=== PATIENT | female | born 1960 | race Caucasian/White ===

== ENCOUNTER 2020-03-24 21:54 | Emergency (ER) | payer BC ==
[~2020-03-24] VITALS: Ht 162.6 cm; Wt 88.5 kg
[~2020-03-24 21:54] MED LIST: ALLOPURINOL300 MG PO; ASPIRIN325 MG PO; HAIR, SKIN & N1 EACH PO; HYDROCODONE PO; PREVACID15 M1 PO; SYMBICORT PO; VENTOLIN HFA18 GM PO; VITAMIN E400 UNIT PO; [UNRECOGNIZED DRUG - OTHER] PO
--- NOTE | 2020-03-24 22:04 | Emergency Department Note ---
History of Present Illnes History of Present Illness History of Present Illness This is a 60 year old female with recent diagnosis of COVID-19 URI presents to the ED for neck stiffness of one day duration. patient had tested (+) for COVID-19 infection 03/07/2020. Arrived in EMS in no acute distress. Historian: Patient Arrival Mode: [facility] Onset (how long ago): day(s) Location: right paracervical Radiation: Reports neck Severity: moderate Onset quality: gradual Duration (how long): day(s) (1) Timing of current episode: constant Progression: worsening Chronicity: new Context: Reports recent illness Relieving factors: immobilization, rest Exacerbating factors: movement Associated symptoms: Denies denies other symptoms, Denies confusion, Denies chest pain, Denies cough, Denies diaphoresis, Denies fever/chills, Denies headaches, Denies loss of appetite, Denies malaise, Denies nausea/vomiting, Denies rash, Denies seizure, Denies shortness of breath, Denies syncope, Denies weakness, Denies other Treatments prior to arrival: none Past Medical/Family History Physician Review I have reviewed the patient's past medical and family history. Any updates have been documented here. Past Medical History Recent Fever: Yes Clinical Suspicion of Infectio: Yes New/Unexplained Change in Ment: No Social History Smoking Cessation: Never Smoker Alcohol Use: None Any Illegal Drug Use: No Review of Systems Review of Systems Constitutional: Reports fever, Reports weakness EENTM: Reports no symptoms Cardiovascular: Reports no symptoms Respiratory: Reports no symptoms Gastrointestinal: Reports no symptoms Genitourinary: Reports no symptoms Musculoskeletal: Reports muscle stiffness, Reports neck pain Integumentary: Reports no symptoms Neurological: Reports no symptoms Psychological: Reports no symptoms Endocrine: Reports no symptoms Hematological/Lymphatic: Reports no symptoms Physical Exam Related Data Allergies: Uncoded Allergies: SOME NUTS (Allergy, Severe, THROAT SWELLS, 02/28/09) Triage Vital Signs Vital Signs Date Time Temp Pulse Resp B/P (MAP) Pulse Ox O2 Delivery O2 Flow Rate FiO2 03/24/20 22:02 101.6 86 20 140/59 99 Room Air 03/24/20 23:53 2.0 Vital signs reviewed: Yes Physical Exam CONSTITUTIONAL Constitutional: Present obese, Present ill appearing HENT HENT: Present normocephalic, Present atraumatic, Present oropharynx clear/moist, Present nose normal HENT L/R: Present left ext ear normal, Present right ext ear normal EYES Eyes: Reports PERRL, Reports conjunctivae normal NECK Neck: Present other (hypertonicity paracervical region); Absent supple PULMONARY Pulmonary: Present effort normal, Present breath sounds normal CARDIOVASCULAR Cardiovascular: Present regular rhythm, Present heart sounds normal, Present capillary refill normal, Present normal rate GASTROINTESTINAL Abdominal: Present soft, Present nontender, Present bowel sounds normal GENITOURINARY Genitourinary: Present exam deferred SKIN Skin: Present warm, Present dry MUSCULOSKELETAL Musculoskeletal: Present ROM normal NEUROLOGICAL Neurological: Present alert, Present oriented x 3, Present no gross motor or sensory deficits PSYCHOLOGICAL Psychological: Present mood/affect normal, Present judgement normal Results Laboratory Lab results reviewed: Yes Imaging Imaging results reviewed: Yes Impressions [place] [id number] Patient Name: MARTIN CORONA MR #: [id number] : 1960 Age/Sex: 60/F Req #: [id number] Adm Physician: Ordered by: KEVON HALL DO Report #: [id number] Location: ER Room/Bed: Procedure: [id number] DX/CHEST SINGLE (PORTABLE) Exam Date: 03/24/20 Exam Time: 2300 REPORT STATUS: Signed EXAMINATION: CHEST SINGLE (PORTABLE) INDICATION: ^Y ^covid URI ^[id number] ^2300 COMPARISON: FINDINGS: Heart is nonenlarged. Prominent interstitial markings. Mild patchy right infrahilar opacity. No pleural effusion. No pneumothorax. Old left rib fractures. IMPRESSION: Mild patchy right infrahilar opacity could represent atelectasis or developing pneumonia. Signed by: Dionisio Davalos MD on 03/24/2020 11:47 PM Dictated By: DIONISIO DAVALOS MD 46 Transcribed By: LIMA on 03/24/202346 COPY TO: KEVON HALL DO~ [facility] [address] [place] [address] Patient Name: MARTIN CORONA MR #: [id number] : 1960 Age/Sex: 60/F Req #: [id number] Adm Physician: Ordered by: KEVNO HALL DO Report #: [id number] Location: ER Room/Bed: Procedure: [id number] CT/CT BRAIN WO Exam Date: 03/24/20 Exam Time: 2248 REPORT STATUS: Signed Exam: Head CT without contrast History: Pain, COVID + Comparison studies: None Technique: Axial images were obtained from the skull base to the vertex. Coronal and sagittal images reconstructed from the axial data. Dose modulation, iterative reconstruction, and/or weight based adjustment of the mA/kV was utilized to reduce the radiation dose to as low as reasonably achievable. Radiation dose: Total DLP: 832 mGy*cm. Estimated effective dose: DLP x 0.015 Intravenous contrast: None Findings: Scalp: No abnormalities. Bones: No fractures, blastic or lytic lesions. Brain sulci: Appropriate for age. Ventricles: Normal in size and configuration. No hydrocephalus. Extra-axial spaces: No masses, no fluid collection. Parenchyma: No abnormal densities. No masses, hemorrhage, acute or chronic vascular insults. Sellar/suprasellar region: No abnormalities. Craniocervical junction: Patent foramen magnum. No Chiari one malformation. Middle ear cavities and mastoids: Clear. Incidental findings: Atherosclerotic calcifications in the carotid siphons. Partially opacified right maxillary sinus with polypoid mucosal thickening.. IMPRESSION: No acute intracranial abnormality. Signed by: Dr. Addison Castellon M.D. on 03/24/2020 11:15 PM Dictated By: ADDISON CASTELLON MD 14 Transcribed By: LIMA on 03/24/202314 COPY TO: KEVON HALL DO~ Assessment & Plan Medical Decision Making MDM Diff Dx : COVID meningitis, meningitis, COVID-19 URI, respiratory failure Assessment & Plan Final Impression: (1) Upper respiratory tract infection due to COVID-19 virus (2) Hypoxia (3) Neck stiffness Depart Disposition: TRANS TO OTHER [facility] Home Meds Reported Medications Albuterol Sulfate (VENTOLIN HFA) 18 Gm Hfa.aer.ad, INH INH PRN 03/25/20 Olmesartan Medoxomil (BENICAR) 20 Mg Tablet, 20 MG PO DAILY, #30 TAB 03/25/20 Atorvastatin Calcium (ATORVASTATIN CALCIUM) 10 Mg Tablet, 10 MG PO 2100, #30 TAB 03/25/20 Fluticasone/Salmeterol (ADVAIR 100-50 DISKUS) 1 Each Disk.w.dev, 1 INH INH BID 03/25/20 Duloxetine Hcl (CYMBALTA) 20 Mg Capcr, 20 MG PO DAILY, #30 CAP 03/25/20 Pantoprazole Sodium* (PROTONIX) 40 Mg Tablet.dr, 40 MG PO DAILY, TAB 03/25/20 Vitamin E Acetate (VITAMIN E) 400 Unit Capsule, 400 UNITS PO DAILY, #30 CAP 01/09/14 Multivitamin With Minerals (HAIR, SKIN & NAILS) 1 Each Tablet, PO DAILY 10/31/13 Allopurinol (ALLOPURINOL) 300 Mg Tablet, 300 MG PO DAILY, #30 TAB 10/31/13 Discontinued Reported Medications Albuterol Sulfate (VENTOLIN HFA) 18 Gm Hfa.aer.ad, PO PRN 01/09/14 [Symbicort] No Conflict Check, 160 PO BID 01/09/14 [Hydrocodone] No Conflict Check, 7.5 MG PO HS 10/31/13 Aspirin (ASPIRIN) 325 Mg Tablet, 325 MG PO PRN, TAB 10/31/13 [Women's Ultra] No Conflict Check, PO DAILY 10/31/13 Lansoprazole (PREVACID) 15 Mg Tab.rap., 1-2 MG PO DAILY 10/31/13 KEVON HALL DO Mar 24, 2020 22:04
[2020-03-24] MEDS ORDERED: DEXAMETHASONE SOD PHOS 10 MG/1 ML VIAL IV STA (22:12)
[2020-03-24] MEDS ORDERED: AZITHROMYCIN 500MG/NS 250 ML 250 ML IV STA (22:12)
[2020-03-24] MEDS ORDERED: ACETAMINOPHEN 325 MG TAB PO STA (22:12)
[2020-03-24] MEDS ORDERED: MORPHINE SULFATE INJ 4 MG/ML INJ 1ML IV STA (22:15)
[2020-03-24] MEDS ORDERED: ONDANSETRON HCL INJ 2MG/ML 2ML 2 MG/ML VIAL IV STA (22:15)
[2020-03-24 23:07] LABS: BASOPHILS # (AUTO) 0.1 (0.0-0.1); BASOPHILS % 0.5 % (0.0-1.0); EOSINOPHILS # (AUTO) 0.1 (0.0-0.4); EOSINOPHILS % 1.1 % (0.0-6.0); HEMATOCRIT 35.1 % (34.2-44.1); HEMOGLOBIN 11.3 g/dL (12.0-16.0); LYMPHOCYTES % 21.6 % (18.0-39.1); MEAN CORPUSCULAR HEMOGLOBIN 29.1 pg (28-32); MEAN CORPUSCULAR HGB CONC 32.2 g/dL (31-35); MEAN CORPUSCULAR VOLUME 90.5 fL (81-99); MONOCYTES # (AUTO) 0.8 (0.2-0.8); MONOCYTES % 8.5 % (4.4-11.3); NEUTROPHILS # (AUTO) 6.3 (2.1-6.9); NEUTROPHILS % 67.9 % (38.7-80.0); PLATELET COUNT 395 x10e3/uL (140-360); RED BLOOD COUNT 3.88 x10e6/uL (3.6-5.1); RED CELL DISTRIBUTION WIDTH 13.1 % (11.7-14.4)
--- NOTE | 2020-03-24 23:19 | Diagnostic Imaging Report ---
Exam: Head CT without contrast History: Pain, COVID + Comparison studies: None Technique: Axial images were obtained from the skull base to the vertex. Coronal and sagittal images reconstructed from the axial data. Dose modulation, iterative reconstruction, and/or weight based adjustment of the mA/kV was utilized to reduce the radiation dose to as low as reasonably achievable. Radiation dose: Total DLP: 832 mGy*cm. Estimated effective dose: DLP x 0.015 Intravenous contrast: None Findings: Scalp: No abnormalities. Bones: No fractures, blastic or lytic lesions. Brain sulci: Appropriate for age. Ventricles: Normal in size and configuration. No hydrocephalus. Extra-axial spaces: No masses, no fluid collection. Parenchyma: No abnormal densities. No masses, hemorrhage, acute or chronic vascular insults. Sellar/suprasellar region: No abnormalities. Craniocervical junction: Patent foramen magnum. No Chiari one malformation. Middle ear cavities and mastoids: Clear. Incidental findings: Atherosclerotic calcifications in the carotid siphons. Partially opacified right maxillary sinus with polypoid mucosal thickening.. IMPRESSION: No acute intracranial abnormality. Signed by: Dr. Ralph Castellon M.D. on 03/24/2020 11:15 PM
[2020-03-24 23:21] LABS: ALANINE AMINOTRANSFERASE 122 IU/L (0-55); ALBUMIN 3.5 g/dL (3.5-5.0); ALBUMIN/GLOBULIN RATIO 0.9 (0.8-2.0); ALKALINE PHOSPHATASE 207 IU/L (40-150); ANION GAP 15.9 mmol/L (8-16); BLOOD UREA NITROGEN 8 mg/dL (7-26); BUN/CREATININE RATIO 11 (6-25); CARBON DIOXIDE 26 mmol/L (22-29); CHLORIDE 101 mmol/L (98-107); CREATININE, SERUM 0.76 mg/dL (0.57-1.11); EST GLOMERULAR FILTRATION RATE > 60 ML/MIN (60-); GLUCOSE 104 mg/dL (74-118); POTASSIUM 3.9 mmol/L (3.5-5.1); SODIUM 139 mmol/L (136-145)
--- NOTE | 2020-03-24 23:51 | Diagnostic Imaging Report ---
EXAMINATION: CHEST SINGLE (PORTABLE) INDICATION: ^Y ^covid URI ^[id number] ^2305 COMPARISON: FINDINGS: Heart is nonenlarged. Prominent interstitial markings. Mild patchy right infrahilar opacity. No pleural effusion. No pneumothorax. Old left rib fractures. IMPRESSION: Mild patchy right infrahilar opacity could represent atelectasis or developing pneumonia. Signed by: Stuart Fowler MD on 03/24/2020 11:47 PM
--- NOTE | 2020-03-24 23:59 | NUR ---
Patient O2 saturation dropping to 91% on room air. ER MD notified.
--- OUTSIDE RECORDS SUMMARY | 2020-03-25 00:05 | XMS REPORT | Continuity of Care Document ---
Author Author [facility] t Organization [facility] Address [address] [place] [address] Phone Unavailable Care Team Providers Care Shoe Stamper Name Role Phone Steff YOUNG, Marisol Duarte PCP KEVON HALL Attphys Unavailable Benjamin Artis Attphys Problems Condition Name Condition Details Condition Category Status Onset Date Resolution Date Last Treatment Date Treating Clinician Comments Source M75.22 - BICIPITAL TENDINITIS, LEFT MATTHIAS M75.22 - BICIPITAL TENDINITIS, LEFT MATTHIAS Active 09/18/2017 Abida Chavez Diagnosis Active 2017-09-18 00:01:00 2017-09-18 12:49:00 Abida Chavez ABDOMINAL PAIN GENERALIZED ABD OMINAL PAIN GENERALIZED Active 07/27/2014 Condition 07/27/2014 Medical Group Condition Active 2014-07-27 00:00:00 2014-07-27 09:56:04 Abida Chavez RLQ PAIN / RUQ PAIN RLQ PAIN / RUQ PAIN Active 07/27/2014 [facility] Active 2014-07-27 00:00:00 2014-08-27 15:29:00 Abida Chavez 592.0 - CALCULUS OF KID 592. 0 - CALCULUS OF KID Active 04/06/2013 [facility] Diagnosis Active 2013-04-06 00:01:00 2013-12-24 20:29:00 Abida Chavez Onychomycosis Onyc homycosis Active Problem 07/13/2015 [facility] Problem Active 2015-07-13 03:47:56 Abida Chavez Precordial pain Prec ordial pain Active Diagnosis 06/07/2016 Richard Ramos Diagnosis Active 2016-06-07 04:28:07 Abida Chavez Abnormal EKG Abno rmal EKG Active Diagnosis 06/07/2016 Richard Ramos Diagnosis Active 2016-06-07 04:28:07 [facility] [place] Pure hypercholesterolemia Pure hypercholesterolemia Active Problem 06/07/2016 Richard Ramos Problem Active 2016-06-07 04:28 :07 [facility] Reflux esophagitis Refl ux esophagitis Active Diagnosis 06/07/2016 Richard Ramos Diagnosis Active 2016-06-07 04:28:07 [facility] Abn. Cardio Study Abn. Cardio Study Active Diagnosis 06/07/2016 Richard Ramos Diagnosis Active 2016-06-07 04:28:07 [facility] Chronic airway obstruction, not elsewhere classified Chronic airway obstruction, not elsewhere classified Active Diagnosis 06/07/2016 Richard Ramos Diagnosis Active 2016-06-07 04:28:07 [facility] Feelings Of Urinary Urgency Fe elings Of Urinary Urgency Active 09/02/2013 [facility] Problem Active 2013-09-02 14:32: 54 [facility] Calculus Of Kidney And Ureter Calculus Of Kidney And Ureter Active 09/02/2013 [facility] Problem Active 20 14-09-01 14:32:54 [facility] Nephrolithiasis Neph rolithiasis Active 09/02/2013 [facility] Problem Active 2013-09-02 14:32:54 [facility] Urinary Tract Infection Urin brad Tract Infection Active 09/02/2013 [facility] Problem Active 2013-09-02 14:32: 54 [facility] Acute Bronchitis Acut e Bronchitis Active 09/02/2013 [facility] Problem Active 2013-09-02 14:32:54 [facility] Headache Clus ter Headache Active 09/02/2013 [facility] Problem Active 2013-09-02 14:32:54 [facility] Acute Frontal Sinusitis Acut e Frontal Sinusitis Active 09/02/2013 [facility] Problem Active 2013-09-02 14:32: 54 [facility] Allergies, Adverse Reactions, Alerts Allergy Name Allergy Type Status Severity Reaction(s) Onset Date Inacti ve Date Treating Clinician Comments Source iodine<sup>1</sup> iodine<sup>1</sup> Active 2014-07-27 05: 00:00 [facility] IODINE IODINE Active 2014-07-27 00:00:00 [facility] Cashews Cashews Active Info Not Available 2013-12-29 00:00:00 [facility] Peanuts Peanuts Active Info Not Available 2013-12-29 00:00:00 [facility] Walnuts Walnuts Active Info Not Available 2013-12-29 00:00:00 [facility] Iodinated Contrast Media Propensity to adverse reactions to drug Acti ve 1998-05-04 00:00:00 Lobito Mendez odist No Known Drug Allergies No Known Drug Allergies Active [facility] Family History Family Member Diagnosis Comments Start Date Stop Date Source Unknown Family Member Family History 2013-03-17 22:47:33 2 22:47:33 [facility] Social History Social Habit Start Date Stop Date Quantity Comments Source Sex Assigned At [place] umana Yazidism Tobacco use and exposure 2018-08-30 00:00:00 2018-08-30 00:00:00 Belénnoman jo-ann used Lobito Vega Smokin2013-12-29 00:00:00 2013-12-29 00:00:00 [facility] Social History 2013-09-02 14:32:54 2013-09-02 14:32:54 [facility] Smoking Status Start Date Stop Date Source Never smoker Lobito deluna Medications Ordered Medication Name Filled Medication Name Start Date Stop Da te Current Medication? Ordering Clinician Indication Dosage Frequency Signature (SIG) Comments Components Source Ventolin HFA 2016-06-07 04:28:07 Yes Ahmed Ahmed 2 puffs as needed [facility] Symbicort 2016-06-07 04:28:07 Yes Ahmed Ahmed 2 p uffs [facility] Aspirin 2016-06-07 04:28:07 Yes Ahmed Ahmed 1 tab let [facility] Benadryl 2016-06-07 04:28:07 Yes Ahmed Ahmed 1 ca psule as needed [facility] Allopurinol 2016-06-07 04:28:07 Yes Ahmed Ahmed 1 tablet [facility] Prevacid 2016-06-07 04:28:07 Yes Ahmed Ahmed 1 capsule before a meal [facility] PANTOPRAZOLE SODIUM 40 MG TBEC 2014-07-27 00:00:00 Yes [facility] ALLOPURINOL 300 MG TABS 2014-07-27 00:00:00 Yes [facility] SYMBICORT AERO 2014-07-27 00:00:00 Yes [facility] ASPIRIN 325 MG TABS 2014-07-27 00:00:00 Yes [facility] CIPRO TABS 2014-07-27 00:00:00 Yes Abida Scott VITAMIN E 1000 UNIT CAPS 2014-07-27 00:00:00 Yes [facility] [place] MULTI-VITAMIN TABS 2014-07-27 00:00:00 Yes Abida Scott HAIR/SKIN/NAILS TABS 2014-07-27 00:00:00 Yes [facility]ida [place] Prevacid 30 MG Oral Capsule Delayed Release 2013-09-02 14:32:54 Yes (Active) Abida [place] Allopurinol 300 MG Oral Tablet 2013-09-02 14:32:54 Yes (Active) [facility] [place] Multi Vitamin/Minerals TABS 2013-09-02 14:32:54 Yes (Active) Abida [facility] Hair/Skin/Nails/Biotin TABS 2013-09-02 14:32:54 Yes (Active) Abida Chavez Aspirin 325 MG Oral Tablet 2013-09-02 14:32:54 Yes (Active) Abida Chavez MethylPREDNISolone (Reuben) 4 MG Oral Tablet 2013-06-16 06:00:00 Yes ; Start Date: 06/16/2013; End Date: (Active) Abida [place] Lortab 7.5-500 MG Oral Tablet 2013-03-17 22:47:33 Yes (Active) Abida [place] Promethazine HCl TABS 2013-03-17 22:47:33 Yes (Active) Abida Chavez Cefdinir 300 MG Oral Capsule 2013-03-17 06:00:00 Yes ; Start Date: 03/17/2013; End Date: (Active) Abida Chavez Tamsulosin HCl 0.4 MG Oral Capsule 2013-01-12 05:00:00 Yes ; Start Date: 01/12/2013; End Date: (Active) [facility] Vital Signs Vital Name Observation Time Observation Value Comments Source Height 2014-07-27 14:56:04 [facility] Weight 2014-07-27 14:56:04 Abida Chavez Temperature Oral (F) 2014-07-27 14:56:04 98.4 F [facility] Heart Rate 2014-07-27 14:56:04 Abida Chavez Systolic (mm Hg) 2014-07-27 14:56:04 Jeff rial [facility] Diastolic (mm Hg) 2014-07-27 14:56:04 Mem orial [facility] Weight 2013-12-29 20:45:00 [facility] [place] Heart Rate 2013-12-29 20:45:00 [facility] Diastolic (mm Hg) 2013-12-29 20:45:00 Mem orial [facility] Systolic (mm Hg) 2013-12-29 20:45:00 Jeff rial [place] Weight 2013-12-15 19:45:00 [facility] [place] Heart Rate 2013-12-15 19:45:00 [facility] [place] Diastolic (mm Hg) 2013-12-15 19:45:00 Mem orial [place] Systolic (mm Hg) 2013-12-15 19:45:00 Jeff rial [place] Procedures This patient has no known procedures. Plan of Care Planned Activity Planned Date Details Comments Source Future Scheduled Test 2019-12-03 00:00:00 INFLUENZA VACCINE [code = INFLUENZA VACCINE] [facility] Scheduled Test 2017-11-29 00:00:00 BREAST CANCER SCRE ENING [code = BREAST CANCER SCREENING] [facility] Scheduled Test 2013-09-02 14:32:54 Plan of Care [code = 1877 6-5] [facility] Scheduled Test 2013-06-17 14:16:50 Plan of Care [code = 1877 6-5] [facility] Scheduled Test 2010 00:00:00 COLONOSCOPY SCREEN ING [code = COLONOSCOPY SCREENING] [facility] Scheduled Test 2010 00:00:00 SHINGLES VACCINES (#1) [code = SHINGLES VACCINES (#1)] [facility] Scheduled Test 1981 00:00:00 Screening for polo gnant neoplasm of cervix (procedure) [code = 017572849] [facility] Encounters Start Date/Time End Date/Time Encounter Type Admission Type Att[facility] Care Department Encounter ID Source 2017-09-18 12:10:00 2017-09-18 23:59:00 Outpatient Felicia Artis MHOIB MHOIB [id number] 2015-07-12 15:28:00 2015-07-12 15:28:00 Outpatient [facility] [id number] eClinicalWo rks 2013-12-29 14:45:00 2013-12-29 14:45:00 Outpatient Richard Ramos MD, [place], [place] [id number] eClinicalBalakam 2013-12-15 13:45:00 2013-12-15 13:45:00 Outpatient Richard Ramos MD, PHILIP Ramos MD, [place] [id number] eClinicalWorks 2013-09-02 09:32:55 2013-09-02 09:32:54 Outpatient ALLY CANALES [id number] 2013-06-17 08:16:51 2013-06-17 08:16:50 Outpatient ALLY CANALES [id number] 2013-03-17 16:47:33 2013-03-17 16:47:33 Outpatient ALLY CANALES [id number] Results Test Description Test Time Test Comments Results Result Comments Source CHEST SINGLE (PORTABLE) 2020-03-24 23:45:00 [facility] 1960 Sex: F [place] [address] Patient Name: ADRIANA CORONA MR #: [id number] : 1960 Age/Sex: 60/F Req #: [id number] [facility] Physician: Ordered by: KEVON HALL DO Report #: [id number] Location: ER Room/Bed: Procedure: [id number] DX/CHEST SINGLE (PORTABLE) Exam Date: 03/24/20 Exam Time: 2300 REPORT STATUS: Signed EXAMINATION: CHEST SINGLE (PORTABLE) INDICATION: Y covid URI [id number] COMPARISON: FINDINGS: Heart is nonenlarged. Prominent interstitial markings. Mild patchy right infrahilar opacity. No pleural effusion. No pneumothorax. Old left rib fractures. IMPRESSION: Mild patchy right infrahilar opacity could represent atelectasis or developing pneumonia. Signed by: Dionisio Fowler MD on 03/24/2020 11:47 PM Dictated By: DIONISIO FOWLER MD 46 Transcribed By: LIMA on 03/24/202346 COPY TO: KEVON HALL DO CT BRAIN WO 2020-03-24 23:12:[address] [facility] 1960 Sex: F [place] [address] Patient Name: ADRIANA CORONA MR #: [id number] : 1960 Age/Sex: 60/F Req #: [id number] Adm Physician: Ordered by: KEVON HALL DO Report #: [id number] Location: ER Room/Bed: Procedure: [id number] CT/CT BRAIN WO Exam Date: 03/24/20 Exam Time: 2248 REPORT STATUS: Signed Exam: Head CT without contrast History: Pain, COVID + Comparison studies: None Technique: Axial images were obtained from the skull base to the vertex. Coronal and sagittal images reconstructed from the axial data. Dose modulation, iterative reconstruction, and/or weight based adjustment of the mA/kV was utilized to reduce the radiation dose to as low as reasonably achievable. Radiation dose: Total DLP: 832 mGy*cm. Estimated effective dose: DLP x 0.015 Intravenous contrast: None Findings: Scalp: No abnormalities. Bones: No fractures, blastic or lytic lesions. Brain sulci: Appropriate for age. Ventricles: Normal in size and configuration. No hydrocephalus. Extra-axial spaces: No masses, no fluid collection. Parenchyma: No abnormal densities. No masses, hemorrhage, acute or chronic vascular insults. Sellar/suprasellar region: No abnormalities. Craniocervical junction: Patent foramen magnum. No Chiari one malformation. Middle ear cavities and mastoids: Clear. Incidental fin dings: Atherosclerotic calcifications in the carotid siphons. Partially opacified right maxillary sinus with polypoid mucosal thickening.. IMPRESSION: No acute intracranial abnormality. Signed by: Dr. Addison Madden M.D. on 03/24/2020 11:15 PM Dictated By: ADDISON MADDEN MD 14 Transcribed By: LIMA on 03/24/202314 COPY TO: KEVON HALL DO DIAG MAMM BILATERAL IRENE CAD DIGITAL 2020-02-24 09:51:40 Name: Adriana : 1960 Sex: F - DIAG MAMM BILATERAL IRENE CAD DIGITALBILATERAL DIGITAL DIAGNOSTIC MAMMOGRAM 3D/2D WITH CAD: 02/24/2020CLINICAL: Follow up to previous exam. Digital breast tomosynthesis was performed in addition to routine CC and MLO views. Current mammographic images were evaluated by either a [employer] M-Vu or a [employer] Image[employer] CAD (computer aided detection system). Comparison is made to exams dated 01/14/2019 mammogram, 12/18/2017 mammogram, and 11/21/2016 mammogram - [facility] There are scattered fibroglandular tissues in both breasts. No suspicious mass, architectural distortion, malignant type calcification, or lymph node abnormality detected. INCOMPLETE: ADDITIONAL IMAGING EVALUATION NEEDEDBilateral ultrasound pending for additional evaluation. - BREAST ULTRASOUND BILATERALULTRASOUND OF BOTH BREASTS AND BOTH AXILLA: 02/24/2020Comparison is made to exams dated 01/14/2019 mammogram, 12/18/2017 mammogram, and 11/21/2016 mammogram - [facility] Real-time ultrasound of both breasts and both axilla and clinical breast exam were performed. There is a stable benign cyst in the right breast at 10 o'clock, 5 cm from the nipple. No abnormalities were seen sonographically in the left breast or either axilla. IMPRESSION: BENIGN There is no sonographic evidence of malignancy. The stable cyst in the right breast is benign. Resume annual screening mammography in one year. Sumi Guidry M.D. dm/:02/24/2020 09:51:40 Entry: - 02/24/2020 14:20:30Imaging Technologist: Chastity NOE, [facility]FWletter sent: BIRADS 1-2 Combo FU Letter Mammogram BI-RADS: 0 Incomplete: Additional Imaging Evaluation Needed Ultrasound BI-RADS: 2 Benign BREAST ULTRASOUND BILATERAL 2020-02-24 09:51:40 Name: Adriana : 1960 Sex: F - DIAG MAMM BILATERAL IRENE CAD DIGITALBILATERAL DIGITAL DIAGNOSTIC MAMMOGRAM 3D/2D WITH CAD: 02/24/2020CLINICAL: Follow up to previous exam. Digital breast tomosynthesis was performed in addition to routine CC and MLO views. Current mammographic images were evaluated by either a [employer] M-Vu or a [employer] ImageCheLa Guía [employer] D[employer]er CAD (computer aided detection system). Comparison is made to exams dated 01/14/2019 mammogram, 12/18/2017 mammogram, and 11/21/2016 mammogram - [facility] There are scattered fibroglandular tissues in both breasts. No suspicious mass, architectural distortion, malignant type calcification, or lymph node abnormality detected. INCOMPLETE: ADDITIONAL IMAGING EVALUATION NEEDEDBilateral ultrasound pending for additional evaluation. - BREAST ULTRASOUND BILATERALULTRASOUND OF BOTH BREASTS AND BOTH AXILLA: 02/24/2020Comparison is made to exams dated 01/14/2019 mammogram, 12/18/2017 mammogram, and 11/21/2016 mammogram - [facility] Real-time ultrasound of both breasts and both axilla and clinical breast exam were performed. There is a stable benign cyst in the right breast at 10 o'clock, 5 cm from the nipple. No abnormalities were seen sonographically in the left breast or either axilla. IMPRESSION: BENIGN There is no sonographic evidence of malignancy. The stable cyst in the right breast is benign. Resume annual screening mammography in one year. Sumi Guidry M.D. dm/:02/24/2020 09:51:40 Entry: - 02/24/2020 14:20:30Imaging Technologist: Chastity NOE, [facility]-FWletter sent: BIRADS 1-2 Combo FU Letter Mammogram BI-RADS: 0 Incomplete: Additional Imaging Evaluation Needed Ultrasound BI-RADS: 2 Benign DIAG MAMM RIGHT IRENE CAD DIGITAL 2019-02-18 10:37:51 - DIAG MAMM RIGHT IRENE CAD DIGITALUNILATERAL RIGHT DIGITAL DIAGNOSTIC MAMMOGRAM 3D/2D WITH CAD: 02/18/2019CLINICAL: Recall from screening: Asymmetry right breast. Digital breast tomosynthesis was performed in addition to routine CC and MLO views. Current mammographic images were evaluated by either a [employer] M-Vu or a [employer] ImageConterra Broadband Servicescker CAD (computer aided detection system). Comparison is made to exams dated 12/18/2017 mammogram, 11/21/2016 mammogram - [facility]-, and 11/30/2015 mammogram - [facility] [place]. There are scattered fibroglandular tissues in the right breast. Previously described 6 mm asymmetry in the right breast craniocaudal view laterally, posterior depth, is much less conspicuous on spot compression tomosynthesis views most likely superimposition of breast tissue. An adjacent oval circumscribed low-density benign-appearing mass is also noted.No suspicious mass, architectural distortion, malignant type calcification, or lymph node abnormality detected. INCOMPLETE ASSESSMENT: ADDITIONAL IMAGING EVALUATION RECOMMENDEDMuch less conspicuous asymmetry in the right breast. Survey right breast ultrasound to follow.- BREAST ULTRASOUND RIGHTULTRASOUND OF RIGHT BREAST: 02/18/2019Comparison is made to exams dated 12/18/2017 mammogram, 11/21/2016 mammogram - [facility], and 11/30/2015 mammogram - [facility]. Color flow and real-time ultrasound of the right breast were performed. Jeffery scale images of the real- time examination were reviewed. The breast tissue has scattered fibroglandular background echotexture. Targeted right upper outer quadrant ultrasound demonstrates a 5 mm simple cyst which correlates with an oval circumscribed low- density mass in the right breast, benign. The rest of the right breast survey ultrasound is negative. No axillary lymphadenopathy was faxed.IMPRESSION: PROBABLY BENIGN - FOLLOW-UP RECOMMENDEDThere is no sonographic evidence of malignancy. Much less conspicuous asymmetry in the right breast laterally, posterior depth. This is most likely superimposition of breast tissue. Findings are probably benign, BI-RADS 3. A six-month follow-up spot compression tomosynthesis craniocaudal view is recommended to assess stability.Jt Clemente M.D. ss/:02/18/2019 10:37:51 Teletypewriter Installer: Rashmi NOE, [facility]-letter sent: Short Term Follow Up Ma mmogram BI-RADS: 0 Indeterminate Ultrasound BI-RADS: 3 Probably benign BREAST ULTRASOUND RIGHT 2019-02-18 10:37:51 - D IAG MAMM RIGHT IRENE CAD DIGITALUNILATERAL RIGHT DIGITAL DIAGNOSTIC MAMMOGRAM 3D/2D WITH CAD: 02/18/2019CLINICAL: Recall from screening: Asymmetry right breast. Digital breast tomosynthesis was performed in addition to routine CC and MLO views. Current mammographic images were evaluated by either a [employer] M-Vu or a [employer] ImageConterra Broadband Servicescker CAD (computer aided detection system). Comparison is made to exams dated 12/18/2017 mammogram, 11/21/2016 mammogram - [facility]-, and 11/30/2015 mammogram - [place]. There are scattered fibroglandular tissues in the right breast. Previously described 6 mm asymmetry in the right breast craniocaudal view laterally, posterior depth, is much less conspicuous on spot compression tomosynthesis views most likely superimposition of breast tissue. An adjacent oval circumscribed low-density benign-appearing mass is also noted.No suspicious mass, architectural distortion, malignant type calcification, or lymph node abnormality detected. INCOMPLETE ASSESSMENT: ADDITIONAL IMAGING EVALUATION RECOMMENDEDMuch less conspicuous asymmetry in the right breast. Survey right breast ultrasound to follow.- BREAST ULTRASOUND RIGHTULTRASOUND OF RIGHT BREAST: 02/18/2019Comparison is made to exams dated 12/18/2017 mammogram, 11/21/2016 mammogram - [facility]-, and [facility] [place]. Color flow and real-time ultrasound of the right breast were performed. Jeffery scale images of the real- time examination were reviewed. The breast tissue has scattered fibroglandular background echotexture. Targeted right upper outer quadrant ultrasound demonstrates a 5 mm simple cyst which correlates with an oval circumscribed low- density mass in the right breast, benign. The rest of the right breast survey ultrasound is negative. No axillary lymphadenopathy was faxed.IMPRESSION: PROBABLY BENIGN - FOLLOW-UP RECOMMENDEDThere is no sonographic evidence of malignancy. Much less conspicuous asymmetry in the right breast laterally, posterior depth. This is most likely superimposition of breast tissue. Findings are probably benign, BI-RADS 3. A six-month follow-up spot compression tomosynthesis craniocaudal view is recommended to assess stability.Jt Clemente M.D. ss/:02/18/2019 10:37:51 Teletypewriter Installer: Rashmi NOE, [facility] sent: Short Term Follow Up Ma mmogram BI-RADS: 0 Indeterminate Ultrasound BI-RADS: 3 Probably benign SCR MAMM BILATERAL IRENE CAD DIGITAL 2019-01-15 12:37:40 - SCR MAMM BILATERAL IRENE CAD DIGITALBILATERAL DIGITAL SCREENING MAMMOGRAM 3D/2D WITH CAD: 01/14/2019CLINICAL: Asymptomatic. Digital breast tomosynthesis was performed in addition to routine CC and MLO views. Current mammographic images were evaluated by either a [employer] M-Vu or a [employer] ImageBeijing [employer] CAD (computer aided detection system). Comparison is made to exams dated 12/18/2017 mammogram, 11/21 mammogram - [facility], and 11/30/2015 mammogram - [facility]. There are scattered fibroglandular tissues in both breasts. There is a 6 mm asymmetry in the right breast, middle depth, lateral region seen on the craniocaudal view only, 7 cm from the nipple. No other significant masses, calcifications, or other findings are seen in either breast. IMPRESSION: INCOMPLETE ASSESSMENT: ADDITIONAL IMAGING EVALUATION RECOMMENDEDThe 6 mm asymmetry in the right breast is indeterminate; may represent superimposition of tissue. Additional views with possible ultrasound are recommended. Xin Lagunas D.O. al/:01/15/2019 12:37:40 Teletypewriter Installer: Chastity NOE, [facility]-FWletter sent: Additional Imaging Mammogram BI-RADS: 0 Indeterminate
--- OUTSIDE RECORDS SUMMARY | 2020-03-25 00:05 | XMS REPORT | Clinical Summary ---
Author Author [facility] Organization [facility] Address Unknown Phone Unavailable Care Team Providers Care Tire Servicer Name Role Phone Felicia Artis MD PCP Allergies Comments Active Allergy Reactions Severity Noted Date Iodinated Contrast Media 05/04/1998 Medications Not on file Active Problems Not on file Medical History Medical History Date Comments Hypertension Hyperlipidemia Peptic ulceration COPD (chronic obstructive pulmonary disease) (HCC) Kidney stones Social History Date Tobacco Use Types Packs/Day Years Used Never Smoker Smokeless Tobacco: Never Used Sex Assigned at Date Recorded Not on file Last Filed Vital Signs Not on file Plan of Treatment Health Maintenance Due Date Last Done Comments CERVICAL CANCER SCREENING 1981 COLONOSCOPY SCREENING 2010 SHINGLES VACCINES (#1) 2010 BREAST CANCER SCREENING 11/29/2017 11/30/2015, 10/12/2014, 10/12/2013, Additional history exists INFLUENZA VACCINE 12/03/2019 Results Not on fileafter 03/25/2019 Insurance Type Payer Benefit Subscriber ID Effective Phone Address Plan / Dates Group HMO/PPO [facility] [id number] 2018-P THCARE resent CHOICE/CHO ICE + KATE daniel (Home) [place] [address] Advance Directives For more information, please contact: [phone] Patient X Ray Control Equipment Repairer Explanation Type Date Recorded Advance Directives, Living Will and Medical Power of Trade Show Coordinator
--- OUTSIDE RECORDS SUMMARY | 2020-03-25 00:05 | XMS REPORT | Continuity of Care Document ---
Author Author [employer] Organization [facility] [employer] Address Unknown Phone Unavailable Care Team Providers Care Kiln Stoker Name Role Phone [facility] Unavailable Un available Problems Problem Status Onset Date Classification Date Reported Comments Source M75.22 - BICIPITAL TENDINITIS, LEFT MATHTIAS Active 09/18/2017 [place] ABDOMINAL PAIN GENERALIZED Act davey 07/27/2014 Condition 07/27/2014 [facility] RLQ PAIN / RUQ PAIN Active 07/27/2014 [place] 592.0 - CALCULUS OF KID Active 04/06/2013 [facility] [place] Onychomycosis Active Problem 07/13/2015 [facility] Precordial pain Active Diagnosis 06/07/2016 Richard Ramos Abnormal EKG Active Diagnosis 06/07/2016 Richard Ramos Pure hypercholesterolemia Acti ve Problem 08/2016 [facility] Richard Reflux esophagitis Active Diagnosis 06/07/2016 Richard Ramos Abn. Cardio Study Active Diagnosis 06/07/2016 Richard Ramos Chronic airway obstruction, not elsewhere classified Active Diagnosis 06/07/2016 Richard Ramos Feelings Of Urinary Urgency Ac tive 09/02/2013 [facility] Calculus Of Kidney And Ureter Active 09/02/2013 [facility] Nephrolithiasis Active 09/02/2013 [facility] Urinary Tract Infection Active 09/02/2013 [facility] Acute Bronchitis Active 09/02/2013 [facility] Cluster Headache Active 09/02/2013 [facility] Acute Frontal Sinusitis Active 09/02/2013 [facility] Medications Medication Details Route Status Patient Instructions Ordering Provider Order Date Source PANTOPRAZOLE SODIUM 40 MG TBEC Active 07/27/2014 [facility] ALLOPURINOL 300 MG TABS Active 07/27/2014 [facility] SYMBICORT AERO Active 07/27/2014 [facility] ASPIRIN 325 MG TABS Active 07/27/2014 [facility] CIPRO TABS Active 07/27/2014 [facility] VITAMIN E 1000 UNIT CAPS Active 07/27/2014 [facility] MULTI-VITAMIN TABS Active 07/27/2014 [facility] HAIR/SKIN/NAILS TABS Active 07/27/2014 [facility] MethylPREDNISolone ([place]) 4 MG Oral Tablet ; Start Date: 06/16/2013; End Date: (Active) Active 06/16/2013 [facility] Cefdinir 300 MG Oral Capsule ; Start Date: 03/17/2013; End Date: (Active) Active 03/17/2013 [facility] Tamsulosin HCl 0.4 MG Oral Capsule ; Start Date: 01/12/2013; End Date: (Active) Active 01/12/2013 [facility] Ventolin HFA 2 puffs as needed Inhalation Active 108 (90 Base) MCG/ACT Inhalation every 4 hrs [facility] Richard Ramos Symbicort 2 puffs Inhalation Active 80-4.5 MCG/ACT Inhalati [facility] Aspirin 1 tablet Orally Active 325 MG Orally [facility] a da [facility] Benadryl 1 capsule as needed Orally Active 25 MG Orally every 6 hrs [facility] Allopurinol 1 tablet Orally Active [facility] Pre[facility]id 1 capsule before a me al Orally Active 15 MG Orally [facility] Prevacid 30 MG Oral Capsule Delayed Release (Active) Active [facility] Lortab 7.5-500 MG Oral Tablet (Active) [facility] Promethazine HCl TABS (Active) Active [facility] Allopurinol 300 MG Oral Tablet (Active) Active [facility] Multi Vitamin/Minerals TABS ( Active) Active [facility] Hair/Skin/Nails/Biotin TABS ( Active) Active [facility] Aspirin 325 MG Oral Tablet (A ctive) Active [facility] Allergies, Adverse Reactions, Alerts Substance Category Reaction Severity Reaction type Status Date Reported Comments Source [place] Adverse Reaction Info Not Available Adverse Reaction Active 12/29/2013 Richard Ramos Peanuts Adverse Reaction Info Not Available Adverse Reaction Active 12/29/2013 Richard Ramos Walnuts Adverse Reaction Info Not Available Adverse Reaction Active 12/29/2013 Richard Ramos IODINE Drug allergy IODINE 07/27/2014 [facility] iodine<sup>1</sup> Assertion Drug allergy Active 07/27/2014 Data migrated from [facility] on 12/08/14. Originally documented as iodine. [facility] [place] No Known Drug Allergies drug a llergy drug aller gy Active [facility] Immunizations Immunization Date Given Site Status Last Updated Comments Source Tdap completed [facility] Results No Data Provided for This Section Pathology Reports No Data Provided for This Section Diagnostic Reports Report Value Date Source Shoulder series DX EXAM: XR LE FT SHOULDER 3 VIEWS DATE: 09/18/2017 12:13 PM CDT INDICATION: M75.22 Bicipital tendinitis, left shoulder COMPARISON: None. TECHNIQUE: AP views in internal and external rotation, and an axillary view of the shoulder FINDINGS: No acute fracture or malalignment is identified. Mild osteophyte formation is noted the left AC joint. The left glenohumeral joint joint is maintained. No appreciable soft tissue calcification is noted in the left shoulder. IMPRESSION: 1. No acute fracture or malalignment. 2. 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 09/18/2017 [facility] Consultation Notes No Data Provided for This Section Discharge Summaries No Data Provided for This Section History and Physicals No Data Provided for This Section Vital Signs Vital Sign Value Date Comments Source Height 64 0 07/27/2014 [facility] Weight 179 07/27/2014 [facility] Temperature Oral (F) 98.4 F 07/27/2014 [facility] Heart Rate 66 07/27/2014 [facility] Systolic (mm Hg) 133 07/27/2014 [facility] Diastolic (mm Hg) 82 07/27/2014 [facility] Weight 185 12/29/2013 [facility] Heart Rate 68 12/29/2013 Ahmed [facility] Diastolic (mm Hg) 64 12/29/2013 Ahmed [facility] Systolic (mm Hg) 108 12/29/2013 Ahmed [facility] Weight 185 12/15/2013 Ahmed Ahmed Heart Rate 64 12/15/2013 Ahmed Ahmed Diastolic (mm Hg) 64 12/15/2013 Ahmed Ahmed Systolic (mm Hg) 102 12/15/2013 Ahmed Ahmed Encounters Location Location Details Encounter Type Encounter Number Reason For Visit Attending Provider ADM Date DC Date Status Source AUDIT [id number] 03/17/2013 03/17/2013 [facility] AUDIT [id number] 06/17/2013 06/17/2013 [facility] AUDIT [id number] 09/02/2013 09/02/2013 [facility] Richard Ramos MD, PA pt having some SOB, fatigue dr barry suggested she see syrup maker cook [id number] 12/15/2013 12/15/2013 Richard Ramos MD, PA pt having some SOB, fatigue dr barry suggested she see syrup maker cook [id number] 12/15/2013 12/15/2013 Richard Ramos MD, PA f/u [id number] 12/29/2013 12/29/2013 Richard Ramos [facility] 350 Office Visit [id number] Brendon Santos MD 07/27/2014 07/27/2014 [facility] Unknown [id number] 07/12/19 16 07/12/2015 [facility] Unknown [id number] 07/12/19 16 07/12/2015 Richard Ramos [facility] Unknown [id number] 07/12/19 16 07/12/2015 Richard Ramos [facility] [place] [facility] [id number] Felicia Steff 09/18/2017 09/19/2017 [facility] Procedures No Data Provided for This Section Assessment and Plan No Data Provided for This Section Plan of Care Plan of Care Date Source MRI Brain w/wo contrast 22789 06/16/2013 Routine 09/02/2013 [facility] MRI Brain w/wo contrast 13665 06/16/2013 Routine 06/17/2013 [facility] Social History Social History Date Source No data available for this section [facility] [place] Social History ElementQualifiersDate Rep orted Smoking: . Are you a: Former smoker Quit 04/2013Dec 29, 2013 Alcohol: . 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 [facility] Family History Value Date S ource Maternal history of Diabetes Mellitus (V 18.0); (Active) Paternal history of Coronary Artery Disease (V17.49); (Active) Paternal history of Acute Myocardial Infarction (V17.3); (Active) Paternal history of Cancer (Active) Maternal history of Breast Cancer (V16.3); (Active) 09/02/2013 [facility] Maternal history of Diabetes Mellitus (V 18.0); (Active) Paternal history of Coronary Artery Disease (V17.49); (Active) Paternal history of Acute Myocardial Infarction (V17.3); (Active) Paternal history of Cancer (Active) Maternal history of Breast Cancer (V16.3); (Active) 06/17/2013 [facility] Maternal history of Diabetes Mellitus (V 18.0); (Active) Paternal history of Coronary Artery Disease (V17.49); (Active) Paternal history of Acute Myocardial Infarction (V17.3); (Active) Paternal history of Cancer (Active) Maternal history of Breast Cancer (V16.3); (Active) 03/17/2013 [facility] Advance Directives Order Name Results Value Date Source Advance Directives Advance Dir ectives No Advance Directives available. 09/02/2013 [facility] Advance Directives Advance Dir ectives No Advance Directives available. 06/17/2013 [facility] Advance Directives Advance Dir ectives No Advance Directives available. 03/17/2013 [facility] Functional Status No Data Provided for This Section
--- NOTE | 2020-03-25 00:15 | NUR ---
[facility] denied patient due to capacity
[2020-03-25] MEDS ORDERED: CYMBALTA20 MG PO (00:27)
[2020-03-25] MEDS ORDERED: BENICAR20 MG PO (00:27)
[2020-03-25] MEDS ORDERED: PANTOPRAZOLE SO40 MG PO (00:27)
[2020-03-25] MEDS ORDERED: ADVAIR 100-501 EACH INH (00:27)
[2020-03-25] MEDS ORDERED: ATORVASTATIN CA10 MG PO (00:27)
[2020-03-25] MEDS ORDERED: VENTOLIN HFA18 GM INH (00:27)
[2020-03-25] MEDS ORDERED: CEFTRIAXONE SOD 1 GM/NS 50 ML 50 ML IV STA (00:35)
[2020-03-25] MEDS ORDERED: KETOROLAC TROMETHAMINE 30 MG/ML VIAL IV STA (01:08)
--- NOTE | 2020-03-25 01:22 | NUR ---
[facility] ETA 30-45 minutes at this time
== END 2020-03-25 02:30 | disposition other institution (70) ==
LOC: ER 21:59
DX: U07.1 COVID-19 (principal); R09.02 Hypoxemia; M53.82 Other specified dorsopathies, cervical region; I10 Essential (primary) hypertension; J44.9 Chronic obstructive pulmonary disease, unspecified; E78.5 Hyperlipidemia, unspecified; Z87.442 Personal history of urinary calculi
CPT/HCPCS: 36415; 70450; 71045; 80053; 85025; 99285; J0456; J0696; J1100; J1885; J2270; J2405; U0002

== ENCOUNTER 2024-01-28 05:19 | Observation (INO) | payer BC ==
[2024-01-25 16:26] LABS: BASOPHILS # (AUTO) 0.1 (0.0-0.1); BASOPHILS % 0.7 % (0.0-1.0); EOSINOPHILS # (AUTO) 0.2 (0.0-0.4); EOSINOPHILS % 3.1 % (0.0-6.0); HEMOGLOBIN 12.7 g/dL (12.0-16.0); LYMPHOCYTES # (AUTO) 2.2 (1.0-3.2); LYMPHOCYTES % 30.3 % (18.0-39.1); MEAN CORPUSCULAR HGB CONC 32.6 g/dL (31-35); MEAN CORPUSCULAR VOLUME 92.2 fL (81-99); MONOCYTES # (AUTO) 0.5 (0.2-0.8); MONOCYTES % 7.2 % (4.4-11.3); NEUTROPHILS # (AUTO) 4.3 (2.1-6.9); NEUTROPHILS % 58.4 % (38.7-80.0); PLATELET COUNT 224 x10e3/uL (140-360); RED BLOOD COUNT 4.23 x10e6/uL (3.6-5.1); RED CELL DISTRIBUTION WIDTH 13.6 % (11.7-14.4); WHITE BLOOD COUNT 7.32 x10e3/uL (4.8-10.8)
[2024-01-25 16:37] LABS: INR 0.94
[2024-01-25 16:41] LABS: ANION GAP 15.5 mmol/L (8-16); CALCIUM 9.4 mg/dL (8.4-10.2); CREATININE, SERUM 0.78 mg/dL (0.57-1.11); POTASSIUM 3.5 mmol/L (3.5-5.1)
[~2024-01-28] VITALS: Ht 162.6 cm; Wt 83.9 kg
[~2024-01-28 05:19] MED LIST changes: +ADVAIR 100-501 EACH INH; +ALENDRONATE SOD70 MG; +ATORVASTATIN CA10 MG PO; +BENICAR20 MG PO; +CLOBETASOL1 EA/15 GM PO; +CYMBALTA20 MG PO; +FAMOTIDINE20 MG PO; +MELOXICAM7.5 MG PO; +MULTI-VITAMIN1 EACH PO; +PANTOPRAZOLE SO40 MG PO; +VENTOLIN HFA18 GM INH; +VITAMIN D350 MC1 PO; +WIXELA 100-501 EACH INH; +[UNRECOGNIZED DRUG - OTHER] PO
[2024-01-28] MEDS: CEFAZOLIN SODIUM 2 GM ONE (06:53)
[2024-01-28] MEDS ORDERED: THROMBIN FOR SOLN 5,000 UNIT VIAL ONE (06:53)
[2024-01-28] MEDS ORDERED: Vancomycin IV 1 GM VIAL ONE (06:53)
[2024-01-28] MEDS ORDERED: LIDOCAINE 1% W/EPINEPHRINE 20 ML VIAL ONE (06:53)
[2024-01-28] MEDS: LACTATED RINGER'S 1,000 ML ONE (06:54)
[2024-01-28] MEDS ORDERED: CEPACOL SORE THROAT LOZENGES PO PRN (09:30)
[2024-01-28] MEDS ORDERED: PROMETHAZINE HCL (IM) 25 MG/ML VIAL IM PRN (09:30)
[2024-01-28] MEDS ORDERED: ACETAMINOPHEN 325 MG TAB PO PRN (09:30)
[2024-01-28] MEDS ORDERED: ZOLPIDEM TARTRATE 5 MG TAB PO PRN (09:30)
[2024-01-28] MEDS ORDERED: ALBUTEROL 90 MCG/ACT INHALER INH PRN (09:30)
[2024-01-28] MEDS ORDERED: Morphine 4mg INJECTION 4 MG/ML INJ IM PRN (09:30)
[2024-01-28] MEDS: FENTANYL CITRATE/PF 100MCG/2 ML INJ ONE (09:45)
[2024-01-28] MEDS: HYDROMORPHONE 1MG/1ML INJ ONE (10:05)
[2024-01-28] MEDS: ONDANSETRON HCL INJ 2MG/ML 2ML 2 MG/ML VIAL IV PRN (10:50)
[2024-01-28] MEDS ORDERED: HYDROCODON-ACE1 EA12 PO (11:16)
[2024-01-28] MEDS ORDERED: ROCURONIUM BROMIDE 10 MG/ML 5ML VIAL IV ONE (12:34)
[2024-01-28] MEDS ORDERED: SEVOFLURANE INHAL SOLN 250 ML PEN BTL ONE (12:34)
[2024-01-28] MEDS ORDERED: PROPOFOL IV EMULSION 10 MG/ML 20 ML VIAL ONE (12:34)
[2024-01-28] MEDS ORDERED: DEXAMETHASONE SOD PHOS 10 MG/1 ML VIAL ONE (12:34)
[2024-01-28] MEDS ORDERED: SUGAMMADEX SODIUM 200 MG/2 ML VIAL IV ONE (12:34)
[2024-01-28] MEDS ORDERED: ONDANSETRON HCL INJ 2MG/ML 2ML 2 MG/ML VIAL ONE (12:34)
[2024-01-28] MEDS ORDERED: FAMOTIDINE 20 MG/2 ML VIAL IV ONE (12:34)
[2024-01-28] MEDS ORDERED: LIDOCAINE HCL (LTA) 4 ML SOLN ONE (12:34)
[2024-01-28] MEDS ORDERED: LIDOCAINE HCL 2% LOCAL INJ 5 ML SDV VIAL INJ ONE (12:34)
[2024-01-28] MEDS ORDERED: DEXMEDETOMIDINE HCL 200 MCG/2 ML VIAL ONE (12:34)
[2024-01-28] MEDS ORDERED: KETAMINE HCL INJ 50 MG/ML 10 ML VIAL ONE ×2 (12:34→13:24)
[2024-01-28 12:40] VITALS: BP 118/68; PULSE 78; RESP 18; TEMP 98.4; O2SAT 98
[2024-01-28] MEDS ORDERED: MIDAZOLAM HCL 2 MG/2 ML VIAL ONE (13:24)
[2024-01-28] MEDS ORDERED: FENTANYL CITRATE/PF 100MCG/2 ML INJ ONE (13:24)
[2024-01-28] MEDS: LACTATED RINGER'S 1,000 ML IV SCH (14:17)
[2024-01-28] MEDS: HYDROMORPHONE 2MG/ML IV PRN (14:17)
[2024-01-28 16:16] VITALS: BP 113/54; PULSE 71; RESP 18; TEMP 98.4; O2SAT 95
[2024-01-28 19:47] VITALS: PULSE 71; RESP 16; O2SAT 96
[2024-01-28 20:00] VITALS: BP 132/61; PULSE 77; RESP 20; TEMP 97.9; O2SAT 98
[2024-01-28] MEDS: ATORVASTATIN 10 MG TAB PO SCH (20:23)
[2024-01-28] MEDS: FAMOTIDINE 20 MG TAB PO SCH (20:24)
[2024-01-28 21:26] VITALS: BP 132/61; PULSE 77; RESP 20; TEMP 97.9; O2SAT 98
[2024-01-29] VITALS: BP 137/64; PULSE 80; RESP 21; TEMP 98.3; O2SAT 98
[2024-01-29 04:00] VITALS: BP 136/62; PULSE 77; RESP 20; TEMP 98.2; O2SAT 99
[2024-01-29 07:02] VITALS: PULSE 74; RESP 20; O2SAT 95
[2024-01-29] MEDS: [UNRECOGNIZED DRUG - OTHER] INH SCH (07:04)
[2024-01-29] MEDS: INHA INH SCH (07:04)
[2024-01-29 08:15] VITALS: BP 113/53; PULSE 76; RESP 17; TEMP 98.1; O2SAT 99
[2024-01-29] MEDS: VITAMIN E 400 UNIT CAP PO SCH (08:45)
[2024-01-29] MEDS: ALLOPURINOL 300 MG TAB PO SCH (08:45)
[2024-01-29] MEDS: PANTOPRAZOLE SOD 40 MG TABEC PO SCH (08:45)
[2024-01-29] MEDS: DULOXETINE HCL 20 MG DELAYED RELEASE PO SCH (08:45)
[2024-01-29] MEDS: OLMESARTAN 20 MG TAB PO SCH (08:46)
[2024-01-29] MEDS: MELOXICAM 7.5 MG TAB PO SCH (08:47)
[2024-01-29] MEDS: MULTIVITAMINS/MINERALS TAB PO SCH (08:47)
[2024-01-29 10:18] VITALS: BP 113/53; PULSE 76; RESP 17; TEMP 98.1; O2SAT 99
[2024-01-29] MEDS: OXYCODONE/ACETAMINOPHEN 5-325 1 EACH TABLET PO PRN (10:41)
[2024-01-29] MEDS: CARISOPRODOL 350 MG TAB PO PRN (11:25)
[2024-01-29] MEDS: MAGNESIUM/ALUMINUM/SIMETHICONE 30 ML UDC PO PRN (11:25)
[2024-01-29 11:39] VITALS: BP 137/65; PULSE 63; RESP 18; TEMP 97.7; O2SAT 99
== END 2024-01-29 11:45 | disposition home or self-care (01) ==
LOC: OR 05:19 → PACU V 09:30 → IMCU 12:10
PROVIDERS: ADMIT Neurological Surgery; ATTEND Neurological Surgery
DX: M50.022 Cervical disc disorder at C5-C6 level with myelopathy (principal); M25.78 Osteophyte, vertebrae; M81.0 Age-related osteoporosis without current pathological fracture; G89.29 Other chronic pain; I10 Essential (primary) hypertension; E78.5 Hyperlipidemia, unspecified; J44.9 Chronic obstructive pulmonary disease, unspecified; E66.01 Morbid (severe) obesity due to excess calories; Z71.89 Other specified counseling; Z71.3 Dietary counseling and surveillance; Z71.82 Exercise counseling; K21.9 Gastro-esophageal reflux disease without esophagitis; M10.9 Gout, unspecified; F32.A Depression, unspecified; Z88.6 Allergy status to analgesic agent; Z91.041 Radiographic dye allergy status; Z01.810 Encounter for preprocedural cardiovascular examination; Z01.812 Encounter for preprocedural laboratory examination; Z01.818 Encounter for other preprocedural examination; Z79.1 Long term (current) use of non-steroidal anti-inflammatories (NSAID); Z79.899 Other long term (current) drug therapy; Z68.31 Body mass index [BMI] 31.0-31.9, adult
CPT/HCPCS: 20930; 22551; 22845; 36415; 71046; 72040; 76000; 80048; 85025; 85610; 85730; 86850; 86900; 88304; 88311; 93005; 94664; 94799 ×2; 99252; C1713 ×2; C1762; G0378 ×2; J0690 ×2; J1100; J1170 ×3; J2001; J2250; J2405 ×2; J2704; J3010; J3370; J7121; S0164

== ENCOUNTER 2024-02-02 09:50 | Emergency (ER) | payer BC ==
[~2024-02-02] VITALS: Ht 162.6 cm; Wt 83.9 kg
[~2024-02-02 09:50] MED LIST changes: +HYDROCODON-ACE1 EA12 PO
[2024-02-02 10:57] LABS: BASOPHILS % 0.4 % (0.0-1.0); EOSINOPHILS # (AUTO) 0.2 (0.0-0.4); EOSINOPHILS % 1.3 % (0.0-6.0); HEMATOCRIT 38.3 % (34.2-44.1); HEMOGLOBIN 12.2 g/dL (12.0-16.0); LYMPHOCYTES # (AUTO) 1.1 (1.0-3.2); LYMPHOCYTES % 9.3 % (18.0-39.1); MEAN CORPUSCULAR HEMOGLOBIN 30.1 pg (28-32); MEAN CORPUSCULAR HGB CONC 31.9 g/dL (31-35); MEAN CORPUSCULAR VOLUME 94.6 fL (81-99); MONOCYTES # (AUTO) 0.9 (0.2-0.8); MONOCYTES % 7.5 % (4.4-11.3); NEUTROPHILS # (AUTO) 9.2 (2.1-6.9); NEUTROPHILS % 81.2 % (38.7-80.0); PLATELET COUNT 278 x10e3/uL (140-360); RED BLOOD COUNT 4.05 x10e6/uL (3.6-5.1); RED CELL DISTRIBUTION WIDTH 13.5 % (11.7-14.4); WHITE BLOOD COUNT 11.29 x10e3/uL (4.8-10.8)
[2024-02-02 11:18] LABS: ALANINE AMINOTRANSFERASE 69 IU/L (0-55); ALBUMIN 3.8 g/dL (3.5-5.0); ALBUMIN/GLOBULIN RATIO 0.9 (0.8-2.0); ALKALINE PHOSPHATASE 116 IU/L (40-150); ANION GAP 15.1 mmol/L (8-16); BILIRUBIN,TOTAL 0.7 mg/dL (0.2-1.2); BLOOD UREA NITROGEN 15 mg/dL (7-26); BUN/CREATININE RATIO 18 (6-25); CALCIUM 10.1 mg/dL (8.4-10.2); CARBON DIOXIDE 26 mmol/L (22-29); CHLORIDE 100 mmol/L (98-107); CREATINE KINASE 81 IU/L (29-168); CREATININE, SERUM 0.82 mg/dL (0.57-1.11); EST GLOMERULAR FILTRATION RATE 80 ML/MIN (>=60); GLUCOSE 161 mg/dL (74-118); MAGNESIUM 2.1 MG/DL (1.3-2.1); POTASSIUM 4.1 mmol/L (3.5-5.1); SODIUM 137 mmol/L (136-145); TOTAL PROTEIN 7.9 g/dL (6.5-8.1)
[2024-02-02 11:23] LABS: INR 0.96; PROTHROMBIN TIME 13.3 seconds (11.9-14.5)
[2024-02-02 11:24] LABS: PARTIAL THROMBOPLASTIN TIME 32.2 seconds (23.8-35.5); TROPONIN I < 0.001 ng/mL (0-0.300)
[2024-02-02] MEDS: METHYLPREDNISOLONE SOD SUCC 125 MG/2ML VIAL IV STA (11:31)
[2024-02-02] MEDS: ONDANSETRON HCL INJ 2MG/ML 2ML 2 MG/ML VIAL IV STA (11:31)
[2024-02-02] MEDS: SODIUM CHLORIDE 0.9% 1000ML 1,000 ML IV STA (11:31)
[2024-02-02] MEDS: Morphine 4mg INJECTION 4 MG/ML INJ IV STA (11:31)
[2024-02-02] MEDS: DIPHENHYDRAMINE HCL INJ 50 MG/ML VIAL IV ONE (11:31)
[2024-02-02] MEDS ORDERED: IOPAMIDOL 370 MG/ML 100 ML INFUS..BTL INJ ONE (11:40)
[2024-02-02 13:08] VITALS: PULSE 67; RESP 16; TEMP 98.4; O2SAT 99
== END 2024-02-02 13:28 | disposition home or self-care (01) ==
LOC: ER 10:08
DX: R07.89 Other chest pain (principal); I10 Essential (primary) hypertension; E78.5 Hyperlipidemia, unspecified; J44.9 Chronic obstructive pulmonary disease, unspecified; K21.9 Gastro-esophageal reflux disease without esophagitis; Z87.19 Personal history of other diseases of the digestive system
CPT/HCPCS: 36415; 71045; 71260; 74177; 80053; 82550; 83735; 83880; 84484; 85025; 85379; 85610; 85730; 93005; 99284; J1200; J2270; J2405; J2919; J7030; Q9967

== ENCOUNTER 2024-03-30 17:00 | Outpatient (RCR) | payer BC | END 2024-04-02 | LOC: PT 17:00 | PROVIDERS: ATTEND Neurological Surgery | DX: M50.80 Other cervical disc disorders, unspecified cervical region (principal) ==

== ENCOUNTER 2024-04-15 14:01 | Emergency (ER) | payer BC ==
[~2024-04-15] VITALS: Ht 162.6 cm; Wt 83.9 kg
[2024-04-15 14:05] VITALS: PULSE 89; RESP 16; TEMP 99
[2024-04-15 14:55] LABS: BASOPHILS % 0.6 % (0.0-1.0); EOSINOPHILS # (AUTO) 0.1 (0.0-0.4); EOSINOPHILS % 1.7 % (0.0-6.0); HEMATOCRIT 38.7 % (34.2-44.1); HEMOGLOBIN 12.6 g/dL (12.0-16.0); MEAN CORPUSCULAR HGB CONC 32.6 g/dL (31-35); MEAN CORPUSCULAR VOLUME 92.1 fL (81-99); MONOCYTES # (AUTO) 0.5 (0.2-0.8); MONOCYTES % 8.6 % (4.4-11.3); NEUTROPHILS # (AUTO) 3.6 (2.1-6.9); NEUTROPHILS % 56.9 % (38.7-80.0); PLATELET COUNT 259 x10e3/uL (140-360); RED CELL DISTRIBUTION WIDTH 13.4 % (11.7-14.4); WHITE BLOOD COUNT 6.31 x10e3/uL (4.8-10.8)
[2024-04-15 15:06] LABS: INR 0.92; PROTHROMBIN TIME 12.9 seconds (11.9-14.5)
[2024-04-15 15:13] LABS: ALBUMIN/GLOBULIN RATIO 1.3 (0.8-2.0); ANION GAP 16.6 mmol/L (8-16); BILIRUBIN,TOTAL 0.4 mg/dL (0.2-1.2); CREATININE, SERUM 0.74 mg/dL (0.57-1.11); POTASSIUM 3.6 mmol/L (3.5-5.1); TOTAL PROTEIN 7.1 g/dL (6.5-8.1)
[2024-04-15 15:21] LABS: TROPONIN I 0.004 ng/mL (0-0.300)
[2024-04-15] MEDS ORDERED: PREDNISONE20 MG PO (16:12)
[2024-04-15 16:15] VITALS: RESP 18; O2SAT 100
== END 2024-04-15 16:19 | disposition home or self-care (01) ==
LOC: ER 14:30
DX: F41.9 Anxiety disorder, unspecified (principal); I10 Essential (primary) hypertension; J44.9 Chronic obstructive pulmonary disease, unspecified; E78.5 Hyperlipidemia, unspecified; K21.9 Gastro-esophageal reflux disease without esophagitis
CPT/HCPCS: 36415; 71045; 80053; 82550; 83735; 84484; 85025; 85379; 85610; 85730; 93005; 99283

== ENCOUNTER 2024-04-20 17:00 | Outpatient (RCR) | payer BC ==
[~2024-04-20 17:00] MED LIST changes: +PREDNISONE20 MG PO
== END 2024-05-03 ==
LOC: PT 17:00
PROVIDERS: ATTEND Neurological Surgery
DX: M50.822 Other cervical disc disorders at C5-C6 level (principal)

== ENCOUNTER 2024-07-14 05:27 | Observation (INO) | payer BC ==
[2024-07-12 15:03] LABS: BASOPHILS % 0.6 % (0.0-1.0); EOSINOPHILS # (AUTO) 0.1 (0.0-0.4); EOSINOPHILS % 2.1 % (0.0-6.0); HEMATOCRIT 38.9 % (34.2-44.1); HEMOGLOBIN 13.3 g/dL (12.0-16.0); LYMPHOCYTES % 31.8 % (18.0-39.1); MEAN CORPUSCULAR HGB CONC 34.2 g/dL (31-35); MEAN CORPUSCULAR VOLUME 87.6 fL (81-99); MONOCYTES # (AUTO) 0.4 (0.2-0.8); MONOCYTES % 7.1 % (4.4-11.3); NEUTROPHILS # (AUTO) 3.6 (2.1-6.9); NEUTROPHILS % 58.2 % (38.7-80.0); PLATELET COUNT 245 x10e3/uL (140-360); RED BLOOD COUNT 4.44 x10e6/uL (3.6-5.1); RED CELL DISTRIBUTION WIDTH 13.2 % (11.7-14.4); WHITE BLOOD COUNT 6.16 x10e3/uL (4.8-10.8)
[2024-07-12 15:18] LABS: INR 0.89; PROTHROMBIN TIME 12.6 seconds (11.9-14.5)
[2024-07-12 15:19] LABS: PARTIAL THROMBOPLASTIN TIME 22.2 seconds (23.8-35.5)
[2024-07-12 15:25] LABS: ANION GAP 15.8 mmol/L (8-16); CALCIUM 9.9 mg/dL (8.4-10.2); CREATININE, SERUM 0.76 mg/dL (0.57-1.11); POTASSIUM 3.8 mmol/L (3.5-5.1)
[~2024-07-14] VITALS: Ht 162.6 cm; Wt 88.0 kg
[2024-07-14] VITALS (8 sets, daily range): BP systolic 123–141; BP diastolic 51–75; PULSE 74–99; RESP 9–20; TEMP 97.3–98.7; O2SAT 96–100
[2024-07-14] MEDS ORDERED: PROBIOTIC & AC1 EACH PO (06:34)
[2024-07-14] MEDS: LACTATED RINGER'S 1,000 ML ONE (06:46)
[2024-07-14] MEDS ORDERED: LIDOCAINE HCL 2% LOCAL INJ 5 ML SDV VIAL INJ ONE (07:10)
[2024-07-14] MEDS ORDERED: ROCURONIUM BROMIDE 1 ML IV ONE (07:10)
[2024-07-14] MEDS ORDERED: FENTANYL CITRATE/PF 100MCG/2 ML INJ ONE (07:10)
[2024-07-14] MEDS ORDERED: MIDAZOLAM HCL 2 MG/2 ML VIAL ONE (07:10)
[2024-07-14] MEDS ORDERED: KETAMINE 50MG/5ML SYR ONE (07:11)
[2024-07-14] MEDS ORDERED: PROPOFOL IV EMULSION 10 MG/ML 20 ML VIAL ONE (07:11)
[2024-07-14] MEDS ORDERED: SEVOFLURANE INHAL SOLN 250 ML PEN BTL ONE (07:11)
[2024-07-14] MEDS ORDERED: ACETAMINOPHEN 1000 MG/100 ML 100 ML IV ONE (07:11)
[2024-07-14] MEDS ORDERED: FAMOTIDINE 20 MG/2 ML VIAL IV ONE (07:11)
[2024-07-14] MEDS ORDERED: SODIUM CHLORIDE 0.9% 100 ML ONE (07:18)
[2024-07-14] MEDS ORDERED: DEXMEDETOMIDINE HCL 2 ML ONE (07:18)
[2024-07-14] MEDS ORDERED: ONDANSETRON HCL INJ 2MG/ML 2ML 2 MG/ML VIAL ONE (08:26)
[2024-07-14] MEDS ORDERED: DEXAMETHASONE SOD PHOS INJ 4 MG/ML SDV ONE (08:26)
[2024-07-14] MEDS ORDERED: SUGAMMADEX SODIUM 200 MG/2 ML VIAL IV ONE (08:27)
[2024-07-14] MEDS ORDERED: LACTATED RINGER'S 1,000 ML ONE (08:34)
[2024-07-14] MEDS ORDERED: MAGNESIUM/ALUMINUM/SIMETHICONE 30 ML UDC PO PRN (09:45)
[2024-07-14] MEDS ORDERED: Morphine 10mg syringe 10 MG/ML INJ IM PRN (09:45)
[2024-07-14] MEDS ORDERED: ACETAMINOPHEN 325 MG TAB PO PRN (09:45)
[2024-07-14] MEDS ORDERED: ALBUTEROL SULF 0.083% NEB SOLN 3 ML NEB INH PRN ×2 (09:45→12:15)
[2024-07-14] MEDS ORDERED: PROMETHAZINE HCL (IM) 25 MG/ML VIAL IM PRN (09:45)
[2024-07-14] MEDS ORDERED: ZOLPIDEM TARTRATE 5 MG TAB PO PRN (09:45)
[2024-07-14] MEDS: FENTANYL CITRATE/PF 100MCG/2 ML INJ IV ONE ×2 (09:52→10:05)
[2024-07-14] MEDS: OXYCODONE/ACETAMINOPHEN 5-325 1 EACH TABLET PO ONE (10:26)
[2024-07-14] MEDS: CARISOPRODOL 350 MG TAB PO ONE (10:27)
[2024-07-14] MEDS ORDERED: MORPHINE SULFATE 5 MG/ML VIAL IM PRN (12:15)
[2024-07-14] MEDS: LACTATED RINGER'S 1,000 ML IV SCH (12:32)
[2024-07-14] MEDS: HYDROMORPHONE 2MG/ML IV PRN (12:33)
[2024-07-14] MEDS: ONDANSETRON HCL INJ 2MG/ML 2ML 2 MG/ML VIAL IV PRN (17:05)
[2024-07-14] MEDS: OXYCODONE/ACETAMINOPHEN 5-325 1 EACH TABLET PO PRN (17:05)
[2024-07-14] MEDS: FAMOTIDINE 20 MG TAB PO SCH (20:33)
[2024-07-14] MEDS: ATORVASTATIN 10 MG TAB PO SCH (21:00)
[2024-07-15] VITALS: BP 121/49; PULSE 84; RESP 16; TEMP 97.7; O2SAT 100
[2024-07-15 05:57] VITALS: BP 131/59; PULSE 82; RESP 16; TEMP 98; O2SAT 96
[2024-07-15] MEDS: [UNRECOGNIZED DRUG - OTHER] INH SCH (06:00)
[2024-07-15] MEDS: INHA INH SCH (06:00)
[2024-07-15 07:03] VITALS: PULSE 72; RESP 20; O2SAT 98
[2024-07-15 08:00] VITALS: BP 119/64; PULSE 85; RESP 19; TEMP 98.4; O2SAT 100
[2024-07-15] MEDS: FENTANYL CITRATE/PF 100MCG/2 ML INJ ONE (08:07)
[2024-07-15] MEDS: CARISOPRODOL 350 MG TAB PO PRN (08:26)
[2024-07-15] MEDS: ATORVASTATIN 10 MG TAB PO SCH (08:26)
[2024-07-15] MEDS: DULOXETINE HCL 20 MG DELAYED RELEASE PO SCH (08:26)
[2024-07-15] MEDS: PANTOPRAZOLE SOD 40 MG TABEC PO SCH (08:27)
[2024-07-15] MEDS: MULTIVITAMINS/MINERALS TAB PO SCH (08:27)
[2024-07-15] MEDS: MELOXICAM 7.5 MG TAB PO SCH (08:27)
[2024-07-15] MEDS: VITAMIN E 400 UNIT CAP PO SCH (08:27)
[2024-07-15] MEDS: CHOLECALCIFEROL 1,000 UNIT TAB PO SCH (08:28)
[2024-07-15] MEDS: OLMESARTAN 20 MG TAB PO SCH (08:28)
[2024-07-15] MEDS: ALLOPURINOL 300 MG TAB PO SCH (10:42)
[2024-07-15 11:00] VITALS: BP 105/52; PULSE 69; RESP 17; TEMP 98.2; O2SAT 100
== END 2024-07-15 12:00 | disposition home or self-care (01) ==
LOC: OR 05:27 → PACU V 10:02 → MED/SURG2 11:21
PROVIDERS: ADMIT Neurological Surgery; ATTEND Neurological Surgery
DX: M48.062 Spinal stenosis, lumbar region with neurogenic claudication (principal); I10 Essential (primary) hypertension; E78.5 Hyperlipidemia, unspecified; Z01.810 Encounter for preprocedural cardiovascular examination; Z01.812 Encounter for preprocedural laboratory examination; M81.0 Age-related osteoporosis without current pathological fracture; K44.9 Diaphragmatic hernia without obstruction or gangrene
CPT/HCPCS: 36415; 63047; 63048; 72020; 80048; 85025; 85610; 85730; 86850; 86900; 88304; 93005; 94799 ×2; G0378 ×2; J0131; J0690 ×2; J1100; J1171; J2003; J2250; J2405 ×2; J2470; J2704; J3010; J7050; J7121